=== PATIENT | male | born 1990 | race Caucasian/White ===

== ENCOUNTER → 2017-10-07 | Outpatient (CLI) | payer BC ==
[2017-10-07 18:52] LABS: BASO % 0 % (0-3); EOS # 0.1 x10^3/uL (0.0-0.7); EOS % 1 % (0-3); HEMATOCRIT 42.3 % (39.0-53.0); LYMPH % 31 % (24-48); MEAN CORPUSCULAR HEMOGLOBIN 30 pg (25-35); MEAN CORPUSCULAR HGB CONC 35 g/dL (31-37); MEAN CORPUSCULAR VOLUME 85 fL (79-100); MONO # 0.4 x10^3/uL (0.0-1.1); MONO % 7 % (0-9); NEUT # 4.1 x10^3uL (1.8-7.7); NEUT % 62 % (31-73); PLATELET COUNT 208 x10^3/uL (140-400); RED BLOOD COUNT 4.97 x10^6/uL (4.30-5.70); RED CELL DISTRIBUTION WIDTH 12.8 % (11.5-14.5); WHITE BLOOD COUNT 6.6 x10^3/uL (4.0-11.0)
--- NOTE | 2017-10-07 20:06 | RAD ---
Exam performed: Limited abdominal ultrasound. HISTORY: Umbilical hernia with obstruction. DATE OF SERVICE: 10/07/2017. COMPARISON: None available Findings and impression: Targeted sonographic evaluation of the abdominal wall is performed and images are obtained. No convincing sonographic evidence of umbilical hernia noted. No abnormal fluid collections are seen. Electronically signed by: Raya Russell MD (10/07/2017 8:03 PM) [facility]
== END | disposition home or self-care (01) ==
LOC: US 17:53
PROVIDERS: ATTEND Family Medicine
DX: K42.0 Umbilical hernia with obstruction, without gangrene (principal)
CPT/HCPCS: 36415; 76705; 85025